=== PATIENT | female | born 1995 | race Caucasian/White ===

== ENCOUNTER 2017-12-12 07:05 | Inpatient (IN) | payer MEDICAID ==
--- NOTE | 2017-12-12 07:39 | EDM.PDOCBH ---
ED HPI GENERAL MEDICAL PROBLEM - General Chief Complaint: Drug or Alcohol Abuse Stated Complaint: BEEN USING DRUGS Time Seen by Provider: 12/12/17 07:30 Source of Information: Reports: Patient, EMS History Limitations: Reports: No Limitations - History of Present Illness INITIAL COMMENTS - FREE TEXT/NARRATIVE: 22 yo female brought in by EMS for ? public intoxication, incontinence, recent meth use and disturbing the peace. Has a hx of IDDM and is not compliant with her cares. Has family here and in [place], goes back and forth between her foster family and natural family. EMS picked her up having a panic attack. Has a hx of cutting also. Says currently homeless. Says she takes her Lantus every 2nd or 3rd days. Rarely takes her short acting insulin. Last Lantus about 3 d ago. Is very thirsty now. Hasn't eaten much lately. Has not checked her BS in a few days. Onset: Gradual Onset Date: 12/11/17 Duration: Day(s):, Getting Worse Location: Reports: Generalized Quality: Reports: Other (no pain) Severity: Moderate Improves with: Reports: None Worsens with: Reports: None Context: Reports: Other (IDDM with limited self care. On alcohol/ methamphetamine currently. Used meth yesterday.) Associated Symptoms: Reports: Other (restless) Treatments REPRODUCTION PRODUCTION MANAGER: Reports: Other (see below) (none) Upper Abdominal Pain Score (Numeric/FACES): 5 - Related Data Allergies Allergy/AdvReac Type Severity Reaction Status Date / Time amoxicillin Allergy Cannot Verified 12/12/17 07:15 Remember latex Allergy Rash Verified 12/12/17 07:22 Home Meds: Home Meds Albuterol [Ventolin HFA] 1 - 2 puff IN Q4H PRN 12/12/17 [History] Fluticasone Propionate [Flovent HFA 220 MCG] 2 puff IN BID 12/12/17 [History] Gabapentin [Neurontin] 300 mg PO BID 12/12/17 [History] Insulin Aspart [NovoLOG] 3 units SQ ASDIRECTED 12/12/17 [History] Insulin Glarg,Human.Rec.Analog [Lantus Solostar] 70 units SQ DAILY 12/12/17 [ History] L. Rhamnosus GG/Inulin [Culturelle Capsule] 1 cap PO DAILY 12/12/17 [History] Levothyroxine [Levothyroxine] 100 mcg PO DAILY 12/12/17 [History] Lisinopril [Lisinopril] 10 mg PO DAILY 12/12/17 [History] busPIRone HCl [Buspirone HCl] 7.5 mg PO BID 12/12/17 [History] traMADol [Ultram] 50 mg PO Q6H PRN 12/12/17 [History] Past Medical History HEENT History: Reports: Impaired Vision Cardiovascular History: Reports: High Cholesterol Respiratory History: Reports: Asthma Genitourinary History: Reports: Other (See Below) Other Genitourinary History: suppose to see a specialist regarding kidneys Psychiatric History: Reports: Addiction, Anxiety, Psych Hospitalization(s), Other (See Below) Other Psychiatric History: history of cutting Endocrine/Metabolic History: Reports: Diabetes, Type I, Hypothyroidism - Past Surgical History GI Surgical History: Reports: Hernia, Abdominal Musculoskeletal Surgical History: Reports: Other (See Below) Other Musculoskeletal Surgeries/Procedures:: left hand surgery Social & Family History - Tobacco Use Smoking Status *Q: Current Every Day Smoker Years of Tobacco use: 7 Packs/Tins Daily: 0.7 - Caffeine Use Caffeine Use: Reports: Coffee, Soda - Recreational Drug Use Recreational Drug Use: Yes Drug Use in Last 12 Months: Yes Recreational Drug Type: Reports: Methamphetamine Other Recreational Drug Type: states she has been sober for a year until just recently ED ROS GENERAL - Review of Systems Review Of Systems: See Below Constitutional: Reports: No Symptoms HEENT: Reports: Other (dry mouth) Respiratory: Reports: No Symptoms Cardiovascular: Reports: No Symptoms Endocrine: Reports: High Glucose (? suspects, hasn't checked.), Polydypsia, Other (Was feeling hot and cold alternating before calling 911) GI/Abdominal: Reports: No Symptoms : Reports: Frequency Musculoskeletal: Reports: No Symptoms Skin: Reports: No Symptoms Neurological: Reports: No Symptoms Psychiatric: Reports: Other (restless) ED EXAM, BEHAVIORAL HEALTH - Physical Exam Exam: See Below Exam Limited By: No Limitations General Appearance: Alert, WD/WN, Mild Distress Eye Exam: Bilateral Eye: Normal Inspection Ears: Normal External Exam, Normal Canal, Hearing Grossly Normal, Normal TMs Nose: Normal Inspection, Normal Mucosa, No Blood Throat/Mouth: Normal Lips, Normal Oropharynx, Normal Voice, No Airway Compromise , Other (Dry oral mucosa) Head: Atraumatic, Normocephalic Neck: Normal Inspection, Supple, Non-Tender Respiratory/Chest: Lungs Clear, Normal Breath Sounds, Other (mild tachypnea) Cardiovascular: Regular Rate, Rhythm, No Edema, Tachycardia, Other (pulses in both feet are decreased.) GI/Abdominal: Normal Bowel Sounds, Soft, Non-Tender, No Distention Back Exam: Normal Inspection. No: CVA Tenderness (R), CVA Tenderness (L) Extremities: Normal Inspection, Normal Range of Motion, No Pedal Edema Neurological: Alert, CN II-XII Intact, Normal Cognition, No Motor/Sensory Deficits, Oriented x 3, Other (hyper alert secondary to her meth use.) Psychiatric: Alert, Normal Cognition, Oriented, Restless Skin Exam: Warm, Dry, Intact, Normal color, No rash COURSE, BEHAVIORAL HEALTH COMP - Course Vital Signs: Last Vital Signs Temp 37.4 C 12/12/17 16:00 Pulse 96 12/12/17 16:00 Resp 16 12/12/17 18:00 BP 136/84 12/12/17 18:00 Pulse Ox 99 12/12/17 18:00 Initial AccuCheck >500 Ativan 1 mg IV, diphenhydramine 25 mg IV for restlessness/agitation. Orders, Labs, Meds: Medication Orders Acetaminophen (Tylenol) 650 mg PO Q4H PRN PRN Reason: Pain (Mild 1-3)/fever Dextrose/Water (Dextrose 50% In Water) 50 ml IVPUSH ONETIME PRN PRN Reason: Blood Glucose Dextrose/Sodium Chloride (Dextrose 5%-1/2 Ns) 1,000 mls @ 150 mls/hr IV .CONTINUOUS PRN PRN Reason: Blood Glucose Insulin Human Regular 100 unit (/ Sodium Chloride) 101 mls @ 5.13 mls/hr IV TITRATE MOI; 0.1 UNIT/KG/HR PRN Reason: Protocol Last Titration: 12/12/17 15:05 Dose: 0.07 unit/kg/hr, 4 mls/hr Titration: 12/12/17 14:08 Dose: 0.11 unit/kg/hr, 6 mls/hr Titration: 12/12/17 13:21 Dose: 0.07 unit/kg/hr, 4 mls/hr Titration: 12/12/17 12:03 Dose: 0.11 unit/kg/hr, 6 mls/hr Titration: 12/12/17 10:25 Dose: 0.07 unit/kg/hr, 4 mls/hr Admin: 12/12/17 10:01 Dose: 0.09 unit/kg/hr, 6.18 mls/hr Magnesium Sulfate (Magnesium Sulfate 2 Gm In Water 50 Ml) 50 mls @ 25 mls/hr IV ONETIME PRN PRN Reason: low magnesium Last Admin: 12/12/17 11:32 Dose: 25 mls/hr Potassium Chloride 20 meq/ (Premix) 100 mls @ 50 mls/hr IV Q2H PRN PRN Reason: Hypokalemia Potassium Chloride 20 meq/ (Premix) 100 mls @ 50 mls/hr IV Q2H PRN PRN Reason: Hypokalemia Sodium Chloride (Normal Saline) 2,000 mls @ 500 mls/hr IV .CONTINUOUS PRN PRN Reason: Blood Glucose Last Admin: 12/12/17 11:00 Dose: 500 mls/hr Potassium Chloride 20 meq/ (Premix) 100 mls @ 50 mls/hr IV ASDIRECTED PRN PRN Reason: LOW K+ Lorazepam (Ativan) 1 mg IVPUSH Q2H PRN PRN Reason: Withdrawal Symptoms Ondansetron HCl (Zofran) 4 mg IV Q4H PRN PRN Reason: Nausea/Vomiting Potassium Chloride (Potassium Chloride Solution) 20 meq PO NOW PRN PRN Reason: Hypokalemia Potassium Chloride (Potassium Chloride Solution) 40 meq PO NOW PRN PRN Reason: Hypokalemia Potassium Chloride (Potassium Chloride Solution) 40 meq PO Q2H PRN PRN Reason: Hypokalemia Sodium Chloride (Saline Flush) 10 ml FLUSH ASDIRECTED PRN PRN Reason: Keep Vein Open Laboratory Tests 12/12/17 12/12/17 12/12/17 Range/Units 07:29 08:11 08:12 WBC (4.5-11.0) K/uL RBC (3.30-5.50) M/uL Hgb (12.0-15.0) g/dL Hct (36.0-48.0) % MCV (80-98) fL MCH (27-31) pg MCHC (32-36) % Plt Count (150-400) K/uL VBG pH 7.262 L (7.350-7.450) Sodium 131 L (140-148) mmol/L Potassium 4.4 (3.6-5.2) mmol/L Chloride 92 L (100-108) mmol/L Carbon Dioxide 17 L (21-32) mmol/L Anion Gap 26.4 H (5.0-14.0) mmol/L BUN 20 H (7-18) mg/dL Creatinine 1.2 H (0.6-1.0) mg/dL Est Cr Clr Drug Dosing 52.37 mL/min Estimated GFR (MDRD) 56 L (>60) Glucose 808 H* (74-106) mg/dL Calcium 9.3 (8.5-10.1) mg/dL Urine Color Urine Appearance Urine pH (4.5-8.0) Ur Specific [place] (1.008-1.030) Urine Protein (NEGATIVE) mg/dL Urine Glucose (UA) (NEGATIVE) mg/dL Urine Ketones (NEGATIVE) mg/dL Urine Occult Blood (NEGATIVE) Urine Nitrite (NEGATIVE) Urine Bilirubin (NEGATIVE) Urine Urobilinogen (NORMAL) mg/dL Ur Leukocyte Esterase (NEGATIVE) Urine RBC (0-5) Urine WBC (0-5) Ur Epithelial Cells Amorphous Sediment Urine Bacteria Urine Mucus Urine Opiates Screen (NEGATIVE) Ur Oxycodone Screen (NEGATIVE) Urine Methadone Screen (NEGATIVE) Ur Propoxyphene Screen (NEGATIVE) Ur Barbiturates Screen (NEGATIVE) Ur Tricyclics Screen (NEGATIVE) Ur Phencyclidine Scrn (NEGATIVE) Ur Amphetamine Screen (NEGATIVE) U Methamphetamines Scrn (NEGATIVE) Urine MDMA Screen (NEGATIVE) U Benzodiazepines Scrn (NEGATIVE) U Cocaine Metab Screen (NEGATIVE) U Marijuana (THC) Screen (NEGATIVE) Ethyl Alcohol < 3 mg/dL 12/12/17 12/12/17 12/12/17 Range/Units 08:20 08:20 08:24 WBC 10.2 (4.5-11.0) K/uL RBC 4.85 (3.30-5.50) M/uL Hgb 14.7 (12.0-15.0) g/dL Hct 42.2 (36.0-48.0) % MCV 87 (80-98) fL MCH 30 (27-31) pg MCHC 35 (32-36) % Plt Count 232 (150-400) K/uL VBG pH (7.350-7.450) Sodium (140-148) mmol/L Potassium (3.6-5.2) mmol/L Chloride (100-108) mmol/L Carbon Dioxide (21-32) mmol/L Anion Gap (5.0-14.0) mmol/L BUN (7-18) mg/dL Creatinine (0.6-1.0) mg/dL Est Cr Clr Drug Dosing mL/min Estimated GFR (MDRD) (>60) Glucose (74-106) mg/dL Calcium (8.5-10.1) mg/dL Urine Color Yellow Urine Appearance Clear Urine pH 5.0 (4.5-8.0) Ur Specific [place] 1.010 (1.008-1.030) Urine Protein Negative (NEGATIVE) mg/dL Urine Glucose (UA) 1000 H (NEGATIVE) mg/dL Urine Ketones 50 H (NEGATIVE) mg/dL Urine Occult Blood Moderate (NEGATIVE) Urine Nitrite Negative (NEGATIVE) Urine Bilirubin Negative (NEGATIVE) Urine Urobilinogen Normal (NORMAL) mg/dL Ur Leukocyte Esterase Negative (NEGATIVE) Urine RBC 0-5 (0-5) Urine WBC 0-5 (0-5) Ur Epithelial Cells Few Amorphous Sediment Not seen Urine Bacteria Not seen Urine Mucus Not seen Urine Opiates Screen Negative (NEGATIVE) Ur Oxycodone Screen Negative (NEGATIVE) Urine Methadone Screen Negative (NEGATIVE) Ur Propoxyphene Screen Negative (NEGATIVE) Ur Barbiturates Screen Negative (NEGATIVE) Ur Tricyclics Screen Negative (NEGATIVE) Ur Phencyclidine Scrn Negative (NEGATIVE) Ur Amphetamine Screen Positive H (NEGATIVE) U Methamphetamines Scrn Positive H (NEGATIVE) Urine MDMA Screen Negative (NEGATIVE) U Benzodiazepines Scrn Negative (NEGATIVE) U Cocaine Metab Screen Negative (NEGATIVE) U Marijuana (THC) Screen Negative (NEGATIVE) Ethyl Alcohol mg/dL Medications Generic Name Dose Route Start Last Admin Trade Name Freq PRN Reason Stop Dose Admin Acetaminophen 650 mg 12/12/17 09:39 Tylenol PO Q4H PRN Pain (Mild 1-3)/fever Dextrose/Water 50 ml 12/12/17 09:39 Dextrose 50% In Water IVPUSH ONETIME PRN Blood Glucose Dextrose/Sodium Chloride 1,000 mls @ 150 mls/hr 12/12/17 09:39 Dextrose 5%-1/2 Ns IV .CONTINUOUS PRN Blood Glucose Insulin Human Regular 100 unit 101 mls @ 5.13 mls/hr 12/12/17 09:39 12/12/17 15:05 / Sodium Chloride IV 0.07 unit/kg/hr TITRATE MOI 4 mls/hr Protocol Titration 0.1 UNIT/KG/HR Magnesium Sulfate 50 mls @ 25 mls/hr 12/12/17 09:39 12/12/17 11:32 Magnesium Sulfate 2 Gm In Water 50 Ml IV 25 mls/hr ONETIME PRN Administration low magnesium Potassium Chloride 20 meq/ 100 mls @ 50 mls/hr 12/12/17 09:39 Premix IV Q2H PRN Hypokalemia Potassium Chloride 20 meq/ 100 mls @ 50 mls/hr 12/12/17 09:39 Premix IV Q2H PRN Hypokalemia Sodium Chloride 2,000 mls @ 500 mls/hr 12/12/17 09:39 12/12/17 11:00 Normal Saline IV 500 mls/hr .CONTINUOUS PRN Administration Blood Glucose Potassium Chloride 20 meq/ 100 mls @ 50 mls/hr 12/12/17 12:59 Premix IV ASDIRECTED PRN LOW K+ Lorazepam 1 mg 12/12/17 09:39 Ativan IVPUSH Q2H PRN Withdrawal Symptoms Ondansetron HCl 4 mg 12/12/17 09:39 Zofran IV Q4H PRN Nausea/Vomiting Potassium Chloride 20 meq 12/12/17 09:39 Potassium Chloride Solution PO NOW PRN Hypokalemia Potassium Chloride 40 meq 12/12/17 09:39 Potassium Chloride Solution PO NOW PRN Hypokalemia Potassium Chloride 40 meq 12/12/17 09:39 Potassium Chloride Solution PO Q2H PRN Hypokalemia Sodium Chloride 10 ml 12/12/17 09:39 Saline Flush FLUSH ASDIRECTED PRN Keep Vein Open Discontinued Medications Generic Name Dose Route Start Last Admin Trade Name Freq PRN Reason Stop Dose Admin Albuterol 2.5 mg 12/12/17 08:47 12/12/17 08:51 Proventil Neb Soln NEB 12/12/17 08:48 2.5 mg ONETIME ONE Administration Diphenhydramine HCl 25 mg 12/12/17 09:27 12/12/17 09:31 Benadryl IVPUSH 12/12/17 09:28 25 mg ONETIME ONE Administration Lactated Ringer's 1,000 mls @ 1,000 mls/hr 12/12/17 08:11 12/12/17 08:35 Ringers, Lactated IV 12/12/17 09:10 1,000 mls/hr BOLUS ONE Administration Potassium Chloride 20 meq/ 100 mls @ 50 mls/hr 12/12/17 09:39 12/12/17 10:10 Premix IV 12/12/17 11:38 Not Given ONETIME ONE Potassium Chloride 20 meq/ 112 mls @ 56 mls/hr 12/12/17 13:45 12/12/17 13:37 Lidocaine HCl 2 ml/ Sodium IV 12/12/17 15:44 56 mls/hr Chloride ONETIME ONE Administration Insulin Human Regular 10 unit 12/12/17 08:20 12/12/17 08:44 Novolin R IVPUSH 12/12/17 08:21 10 units ONETIME ONE Administration Protocol Lorazepam Confirm 12/12/17 09:35 12/12/17 09:43 Ativan Administered 12/12/17 09:36 Not Given Dose 2 mg .ROUTE .STK-MED ONE Lorazepam 1 mg 12/12/17 09:40 12/12/17 10:00 Ativan IVPUSH 12/12/17 09:41 1 mg ONETIME ONE Administration Potassium Chloride 40 meq 12/12/17 08:39 12/12/17 08:44 Klor-Con M20 PO 12/12/17 08:40 40 meq ONETIME ONE Administration Departure - Departure Time of Disposition: 12:25 Disposition: Admitted As Inpatient 65 Condition: Fair Clinical Impression: Methamphetamine intoxication, IDDM (insulin dependent diabetes mellitus), Hyperglycemia due to type 1 diabetes mellitus, Glucosuria DKA (diabetic ketoacidoses) Qualifiers: Diabetes mellitus type: type 1 Diabetes mellitus complication detail: without coma Qualified Code(s): E10.10 - Type 1 diabetes mellitus with ketoacidosis without coma - Discharge Information
[2017-12-12] MEDS ORDERED: Lactated Ringers 1,000 ML IV ONE (08:11)
[2017-12-12] MEDS ORDERED: Insulin Regular, Human 100 Units/ML 10 ML Vial IVPUSH ONE (08:20)
[2017-12-12] MEDS ORDERED: Potassium Chloride 20 MEQ Tab.ER PO ONE (08:39)
[2017-12-12] MEDS ORDERED: Albuterol 0.083% 2.5 MG/3 ML Neb Soln NEB ONE (08:47)
[2017-12-12] MEDS ORDERED: diphenhydrAMINE 50 MG/ML SDV IVPUSH ONE (09:27)
[2017-12-12] MEDS ORDERED: LORazepam 2 MG/ML SDV ONE (09:35)
[2017-12-12] MEDS ORDERED: 50% Dextrose in Water 50 ML Syringe IVPUSH PRN (09:39)
[2017-12-12] MEDS ORDERED: LORazepam 2 MG/ML SDV IVPUSH PRN (09:39)
[2017-12-12] MEDS ORDERED: Acetaminophen 325 MG Tab PO PRN (09:39)
[2017-12-12] MEDS ORDERED: Sodium Chloride 0.9% 10 ML Syringe FLUSH PRN (09:39)
[2017-12-12] MEDS ORDERED: Potassium Chloride 10% 20 MEQ/15 ML Soln 15 ML UD Cup PO PRN ×3 (09:39)
[2017-12-12] MEDS ORDERED: Ondansetron 4 MG/2 ML SDV IV PRN (09:39)
[2017-12-12] MEDS ORDERED: Potassium Chloride 20 MEQ in Premix Bag 1 BAG IV ONE (09:39)
[2017-12-12] MEDS ORDERED: Sodium Chloride 0.9% 2,000 ML IV PRN (09:39)
[2017-12-12] MEDS ORDERED: Magnesium Sulfate/Water 50 ML IV PRN (09:39)
[2017-12-12] MEDS ORDERED: Potassium Chloride 20 MEQ in Premix Bag 1 BAG IV PRN ×5 (09:39→12:59)
[2017-12-12] MEDS: LORazepam 2 MG/ML SDV IVPUSH ONE ×2 (09:42→10:00)
[2017-12-12] MEDS: Dextrose 5%-0.45% NaCl 1,000 ML IV PRN ×2 (10:06→20:13)
--- NOTE | 2017-12-12 10:23 | PCM.HP ---
H&P History of Present Illness - General Date of Service: 12/12/17 Admit Problem/Dx: Source of Information: Provider, RN Notes Reviewed History Limitations: Reports: Altered Mental Status (Severe agitation) - History of Present Illness Initial Comments - Free Text/Narative: Ms. Palacios is a 22-year-old woman who is admitted through the emergency department for management of diabetic ketoacidosis and methamphetamine withdrawal. Patient is very agitated when I saw her today and was unable to obtain significant information from her. Information from friends is that she has been using methamphetamine daily and has not taken any insulin over the past 3 days. She is a type I diabetic, and even prior to stopping all insulins she had only been taking her long-acting insulin. Urine drug screen came back positive for methamphetamine and she appears to be going through withdrawal with significant agitation. Venous blood gas shows pH of 7.26, elevated anion gap of 26, and a bicarbonate of 17. Glucose level is significantly elevated at 800. Upper Abdominal Pain Score (Numeric/FACES): 5 - Related Data Allergies/Adverse Reactions: Allergies Allergy/AdvReac Type Severity Reaction Status Date / Time amoxicillin Allergy Cannot Verified 12/12/17 07:15 Remember latex Allergy Rash Verified 12/12/17 07:22 Home Medications: Home Meds Albuterol [Ventolin HFA] 1 - 2 puff IN Q4H PRN 12/12/17 [History] Fluticasone Propionate [Flovent HFA 220 MCG] 2 puff IN BID 12/12/17 [History] Gabapentin [Neurontin] 300 mg PO BID 12/12/17 [History] Insulin Aspart [NovoLOG] 3 units SQ ASDIRECTED 12/12/17 [History] Insulin Glarg,Human.Rec.Analog [Lantus Solostar] 70 units SQ DAILY 12/12/17 [ History] L. Rhamnosus GG/Inulin [Culturelle Capsule] 1 cap PO DAILY 12/12/17 [History] Levothyroxine [Levothyroxine] 100 mcg PO DAILY 12/12/17 [History] Lisinopril [Lisinopril] 10 mg PO DAILY 12/12/17 [History] busPIRone HCl [Buspirone HCl] 7.5 mg PO BID 12/12/17 [History] traMADol [Ultram] 50 mg PO Q6H PRN 12/12/17 [History] Past Medical History HEENT History: Reports: Impaired Vision Other HEENT History: cortical cataract of right eye Cardiovascular History: Reports: High Cholesterol Respiratory History: Reports: Asthma Genitourinary History: Reports: Other (See Below) Other Genitourinary History: suppose to see a specialist regarding kidneys Neurological History: Reports: Neuropathy, Diabetic Psychiatric History: Reports: Addiction, Anxiety, Psych Hospitalization(s), Other (See Below) Other Psychiatric History: history of cutting Endocrine/Metabolic History: Reports: Diabetes, Type I, Hypothyroidism Dermatologic History: Reports: Cellulitis - Infectious Disease History Infectious Disease History: Reports: Chicken Pox, Herpes, MRSA, Other (See Below ) Other Infectious Disease History: MRSA from a nose swab - Past Surgical History GI Surgical History: Reports: Hernia, Abdominal Musculoskeletal Surgical History: Reports: Other (See Below) Other Musculoskeletal Surgeries/Procedures:: left hand surgery Social & Family History - Tobacco Use Smoking Status *Q: Current Every Day Smoker Years of Tobacco use: 7 Packs/Tins Daily: 0.7 - Caffeine Use Caffeine Use: Reports: Coffee, Soda - Recreational Drug Use Recreational Drug Use: Yes Drug Use in Last 12 Months: Yes Recreational Drug Type: Reports: Methamphetamine Other Recreational Drug Type: states she has been sober for a year until just recently H&P Review of Systems - Review of Systems: Review Of Systems: Unable To Obtain General: Reports: ROS unobtainable (Secondary to severe agitation) Exam - Exam Exam: See Below - Vital Signs Vital Signs: Last Vital Signs Temp 99.2 F 12/12/17 10:06 Pulse 122 H 12/12/17 09:14 Resp 20 12/12/17 10:06 BP 144/81 H 12/12/17 10:06 Pulse Ox 100 12/12/17 10:06 Weight: 112 lb - Exam Quality Assessment: DVT Prophylaxis General: Other (Agitated). No: Cooperative HEENT: Conjunctiva Clear, Hearing Intact, Normal Nasal Septum, Posterior Pharynx Clear, Pupils Equal. No: Mucosa Moist & [place] Neck: Supple, Trachea Midline, +2 Carotid Pulse wo Bruit Lungs: Clear to Auscultation, Normal Respiratory Effort Cardiovascular: Regular Rhythm, Normal S1, Normal S2, Tachycardia. No: Systolic Murmur, Diastolic Murmur GI/Abdominal Exam: Soft, Non-Tender, No Organomegaly, No Distention Extremities: Non-Tender, No Pedal Edema Skin: Warm, Dry, Intact Psychiatric: Agitated, Withdrawal Symptoms - Patient Data Result Diagrams: 12/12/17 08:24 12/12/17 08:11 *Q Meaningful Use (ADM) - VTE *Q VTE Criteria *Q: - VTE Risk Assess *Q Each Risk Factor Represents 1 Point: None Total Score 1 Point Risk Factors: 0 Each Risk Factor Represents 2 Points: None Total Score 2 Point Risk Factors: 0 Each Risk Factor Represents 3 Points: None Total Score 3 Point Risk Factors: 0 Each Risk Factor Represents 5 Points: None Total Score 5 Point Risk Factors: 0 Venous Thromboembolism Risk Factor Score *Q: 0 - Stroke *Q Stroke Criteria *Q: - AMI *Q AMI Criteria *Q: Problem List Initiated/Reviewed/Updated: Yes Orders Last 24hrs: Active Orders 24 hr Category Date Time Status Patient Status [ADT] Routine ADT 12/12/17 09:39 Active Ambulate [RC] QID Care 12/12/17 09:39 Active Cardiac Monitoring [RC] .As Directed Care 12/12/17 09:39 Active Diabetes Education [RC] Click to Edit Care 12/12/17 09:39 Active Height and Weight [RC] DAILY Care 12/12/17 09:39 Active Intake and Output [RC] QSHIFT Care 12/12/17 09:39 Active Notify Provider Laboratory Res [RC] ASDIRECTED Care 12/12/17 09:39 Active Notify Provider Laboratory Res [RC] ASDIRECTED Care 12/12/17 09:39 Active Notify Provider Laboratory Res [RC] ASDIRECTED Care 12/12/17 09:39 Active Notify Provider Vital Signs [RC] ASDIRECTED Care 12/12/17 09:39 Active Oxygen Therapy [RC] PRN Care 12/12/17 09:39 Active Peripheral IV Care [RC] . DIRECTED Care 12/12/17 09:39 Active Pulse Oximetry [RC] CONTINUOUS Care 12/12/17 09:39 Active Up With Assistance [RC] ASDIRECTED Care 12/12/17 09:39 Active Up to Chair [RC] QID Care 12/12/17 09:39 Active VTE/DVT Education [RC] Per Unit Routine Care 12/12/17 09:39 Active Vital Signs [RC] Q1H Care 12/12/17 09:39 Active Consult to Diabetic Nurse Specialist [CONS] Routine Cons 12/12/17 09:39 Active Consistent Carbohydrate Diet [DIET] Diet 12/12/17 Lunch Active BASIC METABOLIC PANEL,BMP [CHEM] Lab 12/13/17 05:11 Ordered BASIC METABOLIC PANEL,BMP [CHEM] 4 Lab 12/12/17 09:54 Received BASIC METABOLIC PANEL,BMP [CHEM] Q4 Lab 12/12/17 13:39 Ordered BASIC METABOLIC PANEL,BMP [CHEM] Q4 Lab 12/12/17 17:39 Ordered BASIC METABOLIC PANEL,BMP [CHEM] Q4 Lab 12/12/17 21:39 Ordered BASIC METABOLIC PANEL,BMP [CHEM] Q4 Lab 12/13/17 01:39 Ordered BASIC METABOLIC PANEL,BMP [CHEM] [facility] Lab 12/13/17 05:39 Ordered MAGNESIUM [CHEM] Lab 12/13/17 05:11 Ordered MAGNESIUM [CHEM] [facility] 12/12/17 09:54 Received MAGNESIUM [CHEM] [facility] 12/12/17 15:39 Ordered MAGNESIUM [CHEM] [facility] 12/12/17 21:39 Ordered MAGNESIUM [CHEM] [facility] 12/13/17 03:39 Ordered PHOSPHORUS [CHEM] Lab 12/13/17 05:11 Ordered PHOSPHORUS [CHEM] [facility] 12/12/17 09:54 Received PHOSPHORUS [CHEM] [facility] 12/12/17 15:39 Ordered PHOSPHORUS [CHEM] [facility] 12/12/17 21:39 Ordered PHOSPHORUS [CHEM] [facility] 12/13/17 03:39 Ordered POTASSIUM,K [CHEM] [facility] Lab 12/12/17 11:39 Ordered POTASSIUM,K [CHEM] [facility] Lab 12/12/17 15:39 Ordered POTASSIUM,K [CHEM] [facility] Lab 12/12/17 19:39 Ordered POTASSIUM,K [CHEM] [facility] Lab 12/12/17 23:39 Ordered POTASSIUM,K [CHEM] [facility] Lab 12/13/17 01:39 Ordered POTASSIUM,K [CHEM] [facility] Lab 12/13/17 03:39 Ordered POTASSIUM,K [CHEM] [facility] Lab 12/13/17 05:39 Ordered POTASSIUM,K [CHEM] [facility] Lab 12/13/17 07:39 Ordered Acetaminophen [Tylenol] Med 12/12/17 09:39 Active 650 mg PO Q4H PRN Dextrose 5%-0.45% NaCl [Dextrose 5%-1/2 NS] 1,000 ml Med 12/12/17 09:39 Active IV .CONTINUOUS Dextrose 50% in Water Med 12/12/17 09:39 Active 50 ml IVPUSH ONETIME PRN Insulin Regular, Human [NovoLIN R] 100 unit Med 12/12/17 09:39 Active Sodium Chloride 0.9% [Normal Saline] 100 ml IV TITRATE LORazepam [Ativan] Med 12/12/17 09:39 Active 1 mg IVPUSH Q2H PRN Magnesium Sulfate/Water [Magnesium Sulfate 2 GM in Med 12/12/17 09:39 Active Water 50 ML] 50 ml IV ONETIME Ondansetron [Zofran] Med 12/12/17 09:39 Active 4 mg IV Q4H PRN Potassium Chloride [KCL 20 MEQ in Water 100 ML] 20 meq Med 12/12/17 09:39 Active Premix Bag 1 bag IV ONETIME Potassium Chloride [KCL 20 MEQ in Water 100 ML] 20 meq Med 12/12/17 09:39 Active Premix Bag 1 bag IV Q2H Potassium Chloride [KCL 20 MEQ in Water 100 ML] 20 meq Med 12/12/17 09:39 Active Premix Bag 1 bag IV Q2H Potassium Chloride [Potassium Chloride Solution] Med 12/12/17 09:39 Active 20 meq PO NOW PRN Potassium Chloride [Potassium Chloride Solution] Med 12/12/17 09:39 Active 40 meq PO NOW PRN Potassium Chloride [Potassium Chloride Solution] Med 12/12/17 09:39 Active 40 meq PO Q2H PRN Sodium Chloride 0.9% [Normal Saline] 2,000 ml Med 12/12/17 09:39 Active IV .CONTINUOUS Sodium Chloride 0.9% [Saline Flush] Med 12/12/17 09:39 Active 10 ml FLUSH ASDIRECTED PRN Medication Continuation Instructions [OM.PC] ASDIRECTED Oth 12/12/17 09:39 Ordered Medication Discontinuation Instructions [OM.PC] Ot 12/12/17 09:39 Ordered ASDIRECTED Peripheral IV Insertion Adult [OM.PC] Routine Oth 12/12/17 09:39 Ordered Sequential Compression Device [OM.PC] Per Unit Routine Oth 12/12/17 09:39 Ordered Resuscitation Status Routine Resus Stat 12/12/17 09:21 Ordered Medication Orders Acetaminophen (Tylenol) 650 mg PO Q4H PRN PRN Reason: Pain (Mild 1-3)/fever Dextrose/Water (Dextrose 50% In Water) 50 ml IVPUSH ONETIME PRN PRN Reason: Blood Glucose Dextrose/Sodium Chloride (Dextrose 5%-1/2 Ns) 1,000 mls @ 150 mls/hr IV .CONTINUOUS PRN PRN Reason: Blood Glucose Last Admin: 12/12/17 10:06 Dose: 150 mls/hr Insulin Human Regular 100 unit (/ Sodium Chloride) 101 mls @ 5.13 mls/hr IV TITRATE MOI; 0.1 UNIT/KG/HR PRN Reason: Protocol Last Admin: 12/12/17 10:01 Dose: 0.09 unit/kg/hr, 6.18 mls/hr Magnesium Sulfate (Magnesium Sulfate 2 Gm In Water 50 Ml) 50 mls @ 25 mls/hr IV ONETIME PRN PRN Reason: low magnesium Potassium Chloride 20 meq/ (Premix) 100 mls @ 50 mls/hr IV ONETIME ONE Stop: 12/12/17 11:38 Last Admin: 12/12/17 10:10 Dose: Not Given Potassium Chloride 20 meq/ (Premix) 100 mls @ 50 mls/hr IV Q2H PRN PRN Reason: Hypokalemia Potassium Chloride 20 meq/ (Premix) 100 mls @ 50 mls/hr IV Q2H PRN PRN Reason: Hypokalemia Sodium Chloride (Normal Saline) 2,000 mls @ 500 mls/hr IV .CONTINUOUS PRN PRN Reason: Blood Glucose Lorazepam (Ativan) 1 mg IVPUSH Q2H PRN PRN Reason: Withdrawal Symptoms Ondansetron HCl (Zofran) 4 mg IV Q4H PRN PRN Reason: Nausea/Vomiting Potassium Chloride (Potassium Chloride Solution) 20 meq PO NOW PRN PRN Reason: Hypokalemia Potassium Chloride (Potassium Chloride Solution) 40 meq PO NOW PRN PRN Reason: Hypokalemia Potassium Chloride (Potassium Chloride Solution) 40 meq PO Q2H PRN PRN Reason: Hypokalemia Sodium Chloride (Saline Flush) 10 ml FLUSH ASDIRECTED PRN PRN Reason: Keep Vein Open Assessment/Plan Comment:: ASSESSMENT AND PLAN DIABETIC KETOACIDOSIS-mild to moderate, glucose 800. She has not taken insulin over the past 3 days. -IV insulin per DKA protocol -IV fluids per DKA protocol -Management of electrolytes per DKA protocol -Consistent carb diet -Transfer back to subcutaneous insulin when DKA has resolved -Consult to nurse informatics educator METHAMPHETAMINE WITHDRAWAL-developed severe agitation while in the emergency department -IV lorazepam as needed MAINTENANCE ISSUES -DVT prophylaxis; not indicated -GI prophylaxis; not indicated -Rascon catheter; not indicated -Nutrition; consistent carb diet -Nicotine dependence; not required CODE STATUS-full code ADMISSION STATUS-patient will be admitted to inpatient status, expect at least a 2 night hospital stay for evaluation and management of problems as outlined above. At the time of this admission I do not reasonably expected evaluation and management of this problem will require more than a 96 hour hospital stay. DISPOSITION-anticipate discharge to home after the hospital stay. PRIMARY CARE PROVIDER-patient receives primary care at [facility] in [place]
[2017-12-12] MEDS ORDERED: Potassium Chloride 20 MEQ, Lidocaine 1% 2 ML in Sodium Chloride 0.9% 100 ML IV ONE (13:45)
[2017-12-12] MEDS ORDERED: Glucose Gel 15 GM in 37.5 GM Tube PO PRN (19:26)
[2017-12-12] MEDS ORDERED: Albuterol 8 GM Inhaler INH PRN (19:34)
[2017-12-12] MEDS: Levothyroxine 50 MCG Tab ONE ×2 (20:50→23:16)
[2017-12-12] MEDS: Lisinopril 10 MG Tab PO SCH (20:50)
[2017-12-12] MEDS: Insulin Detemir 100 Units/ML 3 ML Pen ONE ×2 (20:51→23:16)
[2017-12-12] MEDS: Insulin Aspart 100 Units/ML 3 ML Pen SUBCUT SCH (20:53)
[2017-12-12] MEDS: Levothyroxine 100 MCG Tab PO SCH (20:57)
[2017-12-12] MEDS: Gabapentin 300 MG Cap PO SCH (20:58)
[2017-12-12] MEDS ORDERED: Mometasone Furoate HFA 200 mcg/Puff 13 GM Inhaler INH SCH (21:00)
[2017-12-12] MEDS ORDERED: FLUTICASONE PROPIONATE IN SCH (21:00)
[2017-12-13] MEDS: Dextrose 5%-0.45% NaCl 1,000 ML IV PRN (01:52)
[2017-12-13] MEDS ORDERED: Mometasone Furoate HFA 200 mcg/Puff 13 GM Inhaler INH SCH (07:30)
[2017-12-13] MEDS: Insulin Aspart 100 Units/ML 3 ML Pen SUBCUT SCH ×3 (07:43→17:02)
[2017-12-13] MEDS ORDERED: Potassium Chloride 20 MEQ Tab.ER PO ONE (09:00)
[2017-12-13] MEDS ORDERED: Lactobacillus Rhamnosus GG (Probiotic) Cap PO SCH (09:00)
[2017-12-13] MEDS: Levothyroxine 100 MCG Tab PO SCH (09:02)
[2017-12-13] MEDS: Magnesium Sulfate/Water 2 GM in Premix Bag 1 BAG IV SCH ×2 (09:03→14:21)
[2017-12-13] MEDS: Gabapentin 300 MG Cap PO SCH (09:03)
[2017-12-13] MEDS: Lisinopril 10 MG Tab PO SCH (09:04)
--- NOTE | 2017-12-13 14:28 | PCM.DCSUM1 ---
Discharge Summary - Hospital Course Brief History: 22-year-old female with history of insulin-dependent diabetes mellitus and previous methamphetamine dependence who presented with hyperglycemia and agitation. She was admitted for management of diabetic ketoacidosis and methamphetamine intoxication. - Discharge Data Discharge Date: 12/13/17 Discharge Disposition: Home, Self-Care 01 Condition: Fair - Discharge Diagnosis/Problem(s) (1) Methamphetamine intoxication SNOMED Code(s): 78081174941672193 ICD Code: F15.929 - OTHER STIMULANT USE, UNSP WITH INTOXICATION, UNSPECIFIED Status: Acute Current Visit: Yes (2) DKA (diabetic ketoacidoses) SNOMED Code(s): 755860371 ICD Code: E13.10 - OTH DIABETES MELLITUS WITH KETOACIDOSIS WITHOUT COMA Status: Acute Current Visit: Yes Qualifiers: Diabetes mellitus type: type 1 Diabetes mellitus complication detail: without coma Qualified Code(s): E10.10 - Type 1 diabetes mellitus with ketoacidosis without coma (3) Type 1 diabetes mellitus SNOMED Code(s): 14656252 ICD Code: E10.9 - TYPE 1 DIABETES MELLITUS WITHOUT COMPLICATIONS Status: Chronic Current Visit: No Qualifiers: Diabetes mellitus complication status: with unspecified complications Qualified Code(s): E10.8 - Type 1 diabetes mellitus with unspecified complications - Patient Summary/Data Consults: Consultations 12/12/17 09:39 Consult to Diabetic Nurse Specialist [CONS] Routine Comment: Physician Instructions: Reason for Consult: DKA Hospital Course: Cierra presented to the emergency room with hyperglycemia and agitation. Per report she had been using methamphetamines and had been neglecting her insulin for the past several days. In the emergency room she was agitated and received 2 doses of lorazepam before she calmed down. Workup in the emergency room suggested diabetic ketoacidosis with mild acidosis and significant elevation of her glucose. She was admitted to the intensive care unit and started on an insulin infusion. Over the course of the day her laboratory studies improved with normalization of her metabolic acidosis and significant improvements in her glucose levels. The evening after admission she was transitioned to subcutaneous insulin. Vital signs remained stable. No significant agitation occurred overnight though she was very somnolent. The morning after admission her blood sugar was slightly on the low side but responded well to a snack and some juice. She has been stable throughout the day and woke up more as the day went on. We discussed recent use of illicit drugs. She does not wish to continue using them but does believe she has the resources to help her quit in her home county. She is not interested in our assistance at this time lighting up a rule 25 for obtaining additional resources for her. Her blood sugars have been stable through the day as have her vital signs. She feels well enough for discharge to home at this time. She will have help from a close friend and her godparents after hospital discharge. She will be following up with her primary care provider when she returns home. - Patient Instructions Diet: Regular Diet as Tolerated Activity: As Tolerated Showering/Bathing: May Shower Notify Provider of: Fever, Increased Pain Other/Special Instructions: 1. You were in the hospital for management of diabetic ketoacidosis and methamphetamine intoxication. The diabetic ketoacidosis has resolved after insulin infusion and IV fluids. The methamphetamine intoxication has resolved in withdrawal symptoms at this time seem to be limited to fatigue. I would encourage you to seek methamphetamine treatment/information through your home county. You will need to have a rule 25 scheduled to further assess your dependence on the drugs. 2. Please continue your home medications including the insulin as previously prescribed. 3. Please seek medical attention if you develop fever greater than 101, have persistent vomiting or significant elevations in your blood sugars. - Discharge Plan Home Medications: Home Meds Albuterol [Ventolin HFA] 1 - 2 puff IN Q4H PRN 12/12/17 [History] Fluticasone Propionate [Flovent HFA 220 MCG] 2 puff IN BID 12/12/17 [History] Gabapentin [Neurontin] 300 mg PO BID 12/12/17 [History] Insulin Aspart [NovoLOG] 3 units SQ ASDIRECTED 12/12/17 [History] Insulin Glarg,Human.Rec.Analog [Lantus Solostar] 70 units SQ DAILY 12/12/17 [ History] L. Rhamnosus GG/Inulin [Culturelle Capsule] 1 cap PO DAILY 12/12/17 [History] Levothyroxine 100 mcg PO DAILY 12/12/17 [History] Lisinopril 10 mg PO DAILY 12/12/17 [History] busPIRone HCl [Buspirone HCl] 7.5 mg PO BID 12/12/17 [History] traMADol [Ultram] 50 mg PO Q6H PRN 12/12/17 [History] Patient Handouts: Hyperglycemia, [id number], Stimulant Use Disorder- Methamphetamines Referrals: PCP,None [Primary Care Provider] - (Follow-up with your regular doctor as needed if symptoms do not continue to get better or if they get worse) - Discharge Summary/Plan Comment DC Time >30 min.: No (25) - Patient Data Vitals - Most Recent: Last Vital Signs Temp 37.2 C 12/13/17 11:28 Pulse 91 12/13/17 05:37 Resp 12 12/13/17 14:00 BP 120/73 12/13/17 14:00 Pulse Ox 99 12/13/17 14:00 Weight - Most Recent: 50.802 kg I&O - Last 24 hours: Intake & Output 12/12/17 12/13/17 12/13/17 22:59 06:59 14:59 Intake Total 1750 2116 450 Output Total 400 950 Balance 1750 1716 -500 Lab Results - Last 24 hrs: Laboratory Results - last 24 hr 12/12/17 12/12/17 12/12/17 Range/Units 15:41 17:39 23:07 Sodium 136 L (140-148) mmol/L Potassium 4.0 5.5 H 3.8 (3.6-5.2) mmol/L Chloride 107 (100-108) mmol/L Carbon Dioxide 22 (21-32) mmol/L Anion Gap 12.5 (5.0-14.0) mmol/L BUN 11 (7-18) mg/dL Creatinine 0.6 (0.6-1.0) mg/dL Est Cr Clr Drug Dosing 104.74 mL/min Estimated GFR (MDRD) > 60 (>60) Glucose 161 H (74-106) mg/dL Calcium 8.3 L (8.5-10.1) mg/dL Phosphorus 2.0 L (2.5-4.9) mg/dL Magnesium 1.8 (1.8-2.4) mg/dL 12/13/17 Range/Units 05:58 Sodium 139 L (140-148) mmol/L Potassium 3.3 L (3.6-5.2) mmol/L Chloride 108 (100-108) mmol/L Carbon Dioxide 24 (21-32) mmol/L Anion Gap 10.3 (5.0-14.0) mmol/L BUN 7 (7-18) mg/dL Creatinine 0.5 L (0.6-1.0) mg/dL Est Cr Clr Drug Dosing 125.69 mL/min Estimated GFR (MDRD) > 60 (>60) Glucose 69 L (74-106) mg/dL Calcium 8.0 L (8.5-10.1) mg/dL Phosphorus 2.4 L (2.5-4.9) mg/dL Magnesium 1.6 L (1.8-2.4) mg/dL Med Orders - Current: Current Medications Acetaminophen (Tylenol) 650 mg PO Q4H PRN PRN Reason: Pain (Mild 1-3)/fever Albuterol (Ventolin Hfa) 0 gm INH Q4H PRN PRN Reason: Shortness of Breath Dextrose (Glutose 15) 15 gm PO ONETIME PRN PRN Reason: Hypoglycemia Gabapentin (Neurontin) 300 mg PO BID [facility] Last Admin: 12/13/17 09:03 Dose: 300 mg Dextrose/Sodium Chloride (Dextrose 5%-1/2 Ns) 1,000 mls @ 150 mls/hr IV .CONTINUOUS PRN PRN Reason: Blood Glucose Last Admin: 12/13/17 01:52 Dose: 150 mls/hr Magnesium Sulfate 2 gm/ Premix 50 mls @ 25 mls/hr IV Q6H [facility] Stop: 12/13/17 16:59 Last Admin: 12/13/17 14:21 Dose: 25 mls/hr Insulin Aspart (Novolog) 0 unit SUBCUT QIDACANDBED [facility] PRN Reason: Protocol Last Admin: 12/13/17 11:30 Dose: Not Given Insulin Detemir (Levemir) 60 unit SUBCUT BEDTIME [facility] Lactobacillus Rhamnosus (Culturelle) 1 cap PO DAILY [facility] Last Admin: 12/13/17 09:03 Dose: 1 cap Levothyroxine Sodium (Synthroid) 100 mcg PO ACBREAKFAST [facility] Last Admin: 12/13/17 09:02 Dose: 100 mcg Lisinopril (Prinivil) 10 mg PO DAILY [facility] Last Admin: 12/13/17 09:04 Dose: 10 mg Lorazepam (Ativan) 1 mg IVPUSH Q2H PRN PRN Reason: Withdrawal Symptoms Mometasone Furoate (Asmanex Hfa 200mcg) 0 gm INH BIDRT [facility] Last Admin: 12/13/17 09:02 Dose: 2 inh Ondansetron HCl (Zofran) 4 mg IV Q4H PRN PRN Reason: Nausea/Vomiting Sodium Chloride (Saline Flush) 10 ml FLUSH ASDIRECTED PRN PRN Reason: Keep Vein Open Discontinued Medications Albuterol (Proventil Neb Soln) 2.5 mg NEB ONETIME ONE Stop: 12/12/17 08:48 Last Admin: 12/12/17 08:51 Dose: 2.5 mg Dextrose/Water (Dextrose 50% In Water) 50 ml IVPUSH ONETIME PRN PRN Reason: Blood Glucose Diphenhydramine HCl (Benadryl) 25 mg IVPUSH ONETIME ONE Stop: 12/12/17 09:28 Last Admin: 12/12/17 09:31 Dose: 25 mg Lactated Ringer's (Ringers, Lactated) 1,000 mls @ 1,000 mls/hr IV BOLUS ONE Stop: 12/12/17 09:10 Last Admin: 12/12/17 08:35 Dose: 1,000 mls/hr Insulin Human Regular 100 unit (/ Sodium Chloride) 101 mls @ 5.13 mls/hr IV TITRATE MOI; 0.1 UNIT/KG/HR PRN Reason: Protocol Last Titration: 12/12/17 19:45 Dose: 0 unit/kg/hr, 0 mls/hr Magnesium Sulfate (Magnesium Sulfate 2 Gm In Water 50 Ml) 50 mls @ 25 mls/hr IV ONETIME PRN PRN Reason: low magnesium Last Admin: 12/12/17 11:32 Dose: 25 mls/hr Potassium Chloride 20 meq/ (Premix) 100 mls @ 50 mls/hr IV ONETIME ONE Stop: 12/12/17 11:38 Last Admin: 12/12/17 10:10 Dose: Not Given Potassium Chloride 20 meq/ (Premix) 100 mls @ 50 mls/hr IV Q2H PRN PRN Reason: Hypokalemia Potassium Chloride 20 meq/ (Premix) 100 mls @ 50 mls/hr IV Q2H PRN PRN Reason: Hypokalemia Sodium Chloride (Normal Saline) 2,000 mls @ 500 mls/hr IV .CONTINUOUS PRN PRN Reason: Blood Glucose Last Admin: 12/12/17 11:00 Dose: 500 mls/hr Potassium Chloride 20 meq/ (Premix) 100 mls @ 50 mls/hr IV ASDIRECTED PRN PRN Reason: LOW K+ Potassium Chloride 20 meq/Lidocaine HCl 2 ml/ Sodium Chloride 112 mls @ 56 mls/ hr IV ONETIME ONE Stop: 12/12/17 15:44 Last Admin: 12/12/17 13:37 Dose: 56 mls/hr Insulin Detemir (Levemir) 60 unit SUBCUT BEDTIME [facility] Last Admin: 12/12/17 23:18 Dose: Not Given Insulin Detemir (Levemir) Confirm Administered Dose 300 unit .ROUTE .STK-MED ONE Stop: 12/12/17 20:26 Last Admin: 12/12/17 23:16 Dose: Not Given Insulin Human Regular (Novolin R) 10 unit IVPUSH ONETIME ONE PRN Reason: Protocol Stop: 12/12/17 08:21 Last Admin: 12/12/17 08:44 Dose: 10 units Levothyroxine Sodium (Synthroid) Confirm Administered Dose 100 mcg .ROUTE .STK- MED ONE Stop: 12/12/17 20:37 Last Admin: 12/12/17 23:16 Dose: Not Given Lorazepam (Ativan) Confirm Administered Dose 2 mg .ROUTE .STK-MED ONE Stop: 12/12/17 09:36 Last Admin: 12/12/17 09:43 Dose: Not Given Lorazepam (Ativan) 1 mg IVPUSH ONETIME ONE Stop: 12/12/17 09:41 Last Admin: 12/12/17 10:00 Dose: 1 mg Mometasone Furoate (Asmanex Hfa 200mcg) 0 gm INH BIDRT [facility] Last Admin: 12/12/17 20:57 Dose: Not Given Potassium Chloride (Klor-Con M20) 40 meq PO ONETIME ONE Stop: 12/12/17 08:40 Last Admin: 12/12/17 08:44 Dose: 40 meq Potassium Chloride (Potassium Chloride Solution) 20 meq PO NOW PRN PRN Reason: Hypokalemia Potassium Chloride (Potassium Chloride Solution) 40 meq PO NOW PRN PRN Reason: Hypokalemia Potassium Chloride (Potassium Chloride Solution) 40 meq PO Q2H PRN PRN Reason: Hypokalemia Potassium Chloride (Klor-Con M20) 40 meq PO ONETIME ONE Stop: 12/13/17 09:01 Last Admin: 12/13/17 09:03 Dose: 40 meq - Exam Quality Assessment: Denies: Supplemental Oxygen General: Reports: Alert, Oriented, Cooperative, No Acute Distress Neck: Reports: Supple Lungs: Reports: Normal Respiratory Effort Cardiovascular: Reports: Regular Rate, Regular Rhythm Extremities: No Pedal Edema Psy/Mental Status: Reports: Alert, Normal Affect *Q Meaningful Use (DIS) - VTE *Q VTE Criteria *Q: - Stroke *Q Stroke Criteria *Q: - AMI *Q AMI Criteria *Q:
[2017-12-13] MEDS ORDERED: Insulin Detemir 100 Units/ML 3 ML Pen SUBCUT SCH (21:00)
== END 2017-12-13 18:19 | disposition home or self-care (01) | DRG 639 ==
LOC: JP.ED 07:05 → JP.ICU 09:20
PROVIDERS: ADMIT Hospitalist; ATTEND Internal Medicine
DX: E10.10 Type 1 diabetes mellitus with ketoacidosis without coma (principal); F15.929 Other stimulant use, unspecified with intoxication, unspecified; Z79.4 Long term (current) use of insulin; T38.3X6A Underdosing of insulin and oral hypoglycemic [antidiabetic] drugs, initial encounter; Z91.138 Patient's unintentional underdosing of medication regimen for other reason; E10.40 Type 1 diabetes mellitus with diabetic neuropathy, unspecified; F17.210 Nicotine dependence, cigarettes, uncomplicated; Z86.14 Personal history of Methicillin resistant Staphylococcus aureus infection; E03.9 Hypothyroidism, unspecified; H54.7 Unspecified visual loss; Z87.898 Personal history of other specified conditions; Z88.1 Allergy status to other antibiotic agents; Z91.040 Latex allergy status
CPT/HCPCS: 36415; 80048; 80305; 81001; 82800; 82962; 83735; 84100; 84132; 85027; 94640; 96361; 96374; 99285-25; A9270-GY; G0480; J1200; J2060; J3475; J3480; J7030; J7120